=== PATIENT | male | born 1960 | race Caucasian/White ===

== ENCOUNTER 2019-06-25 20:06 | Emergency (ER) | payer SELFPAY ==
[~2019-06-25] VITALS: Ht 190.5 cm; Wt 111.4 kg
[2019-06-25 20:44] VITALS: BP 166/86; PULSE 89; TEMP 98.6
[2019-06-25] MEDS ORDERED: HCTZ12.5TAB PO (21:53)
[2019-06-25] MEDS ORDERED: DOXYCYCLINE 10100 MG PO (22:54)
[2019-06-25] MEDS ORDERED: CEPHALEXIN500 M1 PO (22:54)
[2019-06-25] MEDS ORDERED: NORCO 325 MG-51 TAB PO (23:01)
== END 2019-06-25 23:24 | disposition home or self-care (01) ==
LOC: COL.ER 20:06
DX: S61.256A Open bite of right little finger without damage to nail, initial encounter (principal); L03.011 Cellulitis of right finger; Z23 Encounter for immunization; W54.0XXA Bitten by dog, initial encounter; Y92.410 Unspecified street and highway as the place of occurrence of the external cause

== ENCOUNTER 2020-03-18 15:21 | Emergency (ER) | payer SELFPAY ==
[~2020-03-18] VITALS: Ht 190.5 cm; Wt 109.1 kg
[~2020-03-18 15:21] MED LIST: CEPHALEXIN500 M1 PO; DOXYCYCLINE 10100 MG PO; HCTZ12.5TAB PO; NORCO 325 MG-51 TAB PO
[2020-03-18 15:29] VITALS: TEMP 97.6
[2020-03-18 16:08] LABS: BASO % 0.3 % (0.0-2.0); EOS # 0.1 (0.0-0.7); GRAN # 6.9 (1.4-6.5); GRAN % 74.1 % (42.2-75.2); HEMATOCRIT 43.7 % (42.0-52.0); LYMPH # 1.6 (1.2-3.4); LYMPH % 16.9 % (20.0-51.0); MEAN CELL VOLUME 91 fl (80.0-100.0); MEAN CORPUSCULAR HEMOGLOBIN 29 pg (27.0-31.0); MEAN CORPUSCULAR HGB CONC 32 g/dl (33.0-37.0); MONO # 0.7 (0.1-0.6); MONO % 7.4 % (1.7-9.3); PLATELET COUNT 202 K/mm3 (130-400); RED BLOOD COUNT 4.81 M/mm3 (4.20-5.60); REDCELL DISTRIBUTION WIDTH-CV 13.2 % (11.5-14.5)
[2020-03-18 16:25] LABS: BILIRUBIN,TOTAL 0.4 mg/dL (0.0-1.0); CALCIUM 8.9 mg/dL (8.4-10.2); CREATININE, serum 0.84 (0.66-1.25); POTASSIUM 4.2 mmol/L (3.4-5.0); TOTAL PROTEIN 7.2 gm/dL (6.4-8.2)
[2020-03-18] MEDS ORDERED: BACTRIM DS 8001 TAB PO (16:44)
[2020-03-18] MEDS ORDERED: NORCO 325 MG-51 TAB PO (16:54)
[2020-03-18 16:57] VITALS: BP 175/79; PULSE 94
== END 2020-03-18 16:59 | disposition home or self-care (01) ==
LOC: COL.ER 15:21
PROVIDERS: Nurse Practitioner Primary Care
DX: L03.032 Cellulitis of left toe (principal); F17.210 Nicotine dependence, cigarettes, uncomplicated
CPT/HCPCS: J0696

== ENCOUNTER → 2020-03-20 | Outpatient (CLI) | payer SELFPAY ==
[~2020-03-20] MED LIST changes: +BACTRIM DS 8001 TAB PO
== END ==
LOC: ZCOL.LAB 13:49
DX: L97.529 Non-pressure chronic ulcer of other part of left foot with unspecified severity (principal)

== ENCOUNTER 2022-01-08 07:36 | Inpatient (IN) | payer SELFPAY ==
[2022-01-08] VITALS (14 sets, daily range): BP systolic 115–175; BP diastolic 70–97; PULSE 88–105; TEMP 97.3–98.1
[~2022-01-08] VITALS: Ht 190.5 cm; Wt 112.9 kg
[2022-01-08 08:16] LABS: BASO % 0.3 % (0.0-2.0); EOS # 0.1 K/mm3 (0.0-0.7); EOS % 1.5 % (0.0-4.0); GRAN # 6.8 K/mm3 (1.4-6.5); GRAN % 74.7 % (42.2-75.2); HEMATOCRIT 39.5 % (42.0-52.0); HEMOGLOBIN 12.2 g/dl (13.5-18.0); LYMPH # 1.3 K/mm3 (1.2-3.4); LYMPH % 14.4 % (20.0-51.0); MEAN CELL VOLUME 90 fl (80.0-100.0); MEAN CORPUSCULAR HEMOGLOBIN 28 pg (27-31); MEAN CORPUSCULAR HGB CONC 31 g/dl (33.0-37.0); MEAN PLATELET VOLUME 9.2 fl (7.4-10.4); MONO # 0.8 K/mm3 (0.1-0.6); MONO % 8.8 % (1.7-9.3); PLATELET COUNT 248 K/mm3 (130-400); RED BLOOD COUNT 4.39 M/mm3 (4.20-5.60); REDCELL DISTRIBUTION WIDTH-CV 15.9 % (11.5-14.5)
[2022-01-08 08:42] LABS: ALBUMIN 3.4 gm/dL (3.4-4.8); BILIRUBIN,TOTAL 0.7 mg/dL (0.2-1.2); CALCIUM 8.4 mg/dL (8.4-10.2); CREATININE, serum 0.87 mg/dL (0.72-1.25); POTASSIUM 3.7 mmol/L (3.5-4.5); TOTAL PROTEIN 6.6 gm/dL (6.2-8.1)
[2022-01-08 08:53] LABS: TROPONIN-I 0.098 ng/mL (0.00-0.033)
[2022-01-08 09:06] LABS: COLLECTION METHOD CLEAN CATCH
[2022-01-08 09:15] LABS: MUCOUS Present (NOT PRESENT); PH 5 (5-8); SQUAMOUS EPITHELIAL 0-2 /hpf (0-10); URINE APPEARANCE Hazy (CLEAR/HAZY); URINE BACTERIA None Seen /hpf (NONE SEEN); URINE BILIRUBIN Negative (NEGATIVE); URINE BLOOD Negative (NEGATIVE); URINE COLOR Amber (YELLOW); URINE GLUCOSE Negative (NEGATIVE); URINE KETONE Trace (NEGATIVE); URINE LEUKOCYTE ESTERASE Negative (NEGATIVE); URINE NITRATE Negative (NEGATIVE); URINE PROTEIN(semi-quant) 2+ (NEGATIVE)
--- NOTE | 2022-01-08 13:25 | NUR ---
SEE MERGE FOR ALL MEDICATION AND INTRA POST PROCEDURE ASSESSMENTS.
[2022-01-08] MEDS ORDERED: STRATTERA 40MG40 MG PO (17:18)
[2022-01-08] MEDS ORDERED: CYMBALTA 30MG30 MG PO (17:19)
--- NOTE | 2022-01-08 19:42 | NUR ---
Tx given via mask, pt very sleepy and falls asleep during tx. Hospital unit offered to pt as ordered. Pt states that he has tried CPAP/BIPAP at home and it is not something he wants to try again at this time. 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
--- NOTE | 2022-01-08 22:24 | NUR ---
Patient assessed around 1950. Alert and oriented, and able to make needs known. Denies pain and discomfort. Peripheral IV to left forearm with IV fluids running per orders. Deneis SOB and dyspnea. On oxygen at 2 L/min via NC. LS coarse crackles in upper lobes, diminished in lower. HRR. Telemetry in place. Right radial heart cath site with bandaid on. Site without hematoma, redness, warmth, swelling, and pain. Voices no questions, need, or concerns at this time. In bed with call light within reach.
[2022-01-09 04:41] VITALS: BP 129/65; PULSE 85; TEMP 97.3
--- NOTE | 2022-01-09 05:32 | NUR ---
Patient has been resting in bed with call light within reach. Denies pain and discomfort. Voices no questions, needs, or concerns at this time.
[2022-01-09 06:50] LABS: CALCIUM 8.3 mg/dL (8.4-10.2); CREATININE, serum 0.85 mg/dL (0.72-1.25); MAGNESIUM 1.9 mg/dL (1.6-2.6); POTASSIUM 3.9 mmol/L (3.5-4.5)
[2022-01-09 07:03] VITALS: BP 125/72; PULSE 82; TEMP 98.3
[2022-01-09 07:13] LABS: TSH w REFLEX 1.012 uIU/mL (0.350-4.940)
--- NOTE | 2022-01-09 09:50 | NUR ---
Patient walking around his room upon entering. All morning meds were given w/o difficulty. Patietn has not expressed any concerns/complaints. A&Ox4, independent in his room.
[2022-01-09 11:32] VITALS: BP 109/64; PULSE 75; TEMP 98
--- NOTE | 2022-01-09 12:42 | NUR ---
SW met with pt to complete intake. PT was in/out of sleep and not answering questions well. The pt reports he lives alone in a in [place] and has a daughter, Erika [phone]. He reports he uses a CPAP and a cane. He is indpendent on all ADLs. The pt reports no PCP but gets his medications from [facility]. SW gave patient a financial assistance application and list of PCP doctors. DC: Home? following for further recommendations
--- NOTE | 2022-01-09 13:40 | NUR ---
Patient doing well, report given to
--- NOTE | 2022-01-09 15:02 | NUR ---
DR. PHIPPS NOTIFIED OF DRAINAGE FROM L GREAT TOE, AND HOW PT WAS REFUSING CPAP LAST NIGHT. NO NEW ORDERS
--- NOTE | 2022-01-09 15:14 | NUR ---
MARIBELL made APS report #[id number]
[2022-01-09 15:28] VITALS: BP 115/86; PULSE 80; TEMP 98
--- NOTE | 2022-01-09 17:13 | NUR ---
PT SLEEPING IN THE ROOM, COREG GIVEN PER ORDER, PT AOX4, UNEVENTFUL SHIFT
[2022-01-09 19:58] VITALS: BP 116/56; PULSE 76; TEMP 98.6
[2022-01-09 23:42] VITALS: BP 96/52; PULSE 76; TEMP 98.2
[2022-01-10 03:53] VITALS: BP 101/68; PULSE 88; TEMP 98
--- NOTE | 2022-01-10 05:08 | NUR ---
PATIENT REFUSED CPAP TONIGHT. NO NEW ISSUES NOTED OR REPORTED BY PATIENT. CALL LIGHT WITHIN REACH.
[2022-01-10 06:56] LABS: CALCIUM 7.7 mg/dL (8.4-10.2); CREATININE, serum 0.85 mg/dL (0.72-1.25); MAGNESIUM 1.9 mg/dL (1.6-2.6); POTASSIUM 3.6 mmol/L (3.5-4.5)
[2022-01-10 07:43] VITALS: BP 102/57; PULSE 110; TEMP 97.6
--- NOTE | 2022-01-10 09:49 | NUR ---
PT SITTING UP IN RECLINER. MORNING MEDICATIONS GIVEN. SHIFT ASSESSMENT COMPLETED. REPORTING MILD PAIN TO R HIP. ALSO CONCERNED ABOUT TOE FUNGUS THAT HAS BECOME PAINFUL, STATES HE STARTED TAKING MEDICATION FOR IT A LONG TIME AGO BUT HASN'T SEEN THE DOCTOR OR TAKEN THE MEDICATION FOR THE PAST 3 YEARS. DENIED ANY OTHER NEEDS AT THIS TIME. WILL CONTINUE TO MONITOR.
[2022-01-10 11:26] VITALS: BP 114/74; PULSE 72; TEMP 97.9
[2022-01-10 16:16] VITALS: BP 141/73; PULSE 73; TEMP 98.1
[2022-01-10 20:46] VITALS: BP 105/61; PULSE 72; TEMP 98
[2022-01-10 23:54] VITALS: BP 101/54; PULSE 76; TEMP 97.9
[2022-01-11 04:21] VITALS: BP 136/78; PULSE 83; TEMP 98.1
--- NOTE | 2022-01-11 06:11 | NUR ---
PATIENT WAS ONLY ABLE TO TOLERATE THE BIPAP FOR 45 MINUTES THIS SHIFT. PATIENT STATED HE JUST CAN'T TAKE IT. NO OTHER ISSUES NOTED OR REPORTED BY PATIENT. PATIENT TOOK A LONG SHOWER LAST NIGHT AND SAID IT PRIYANKA GREAT.
[2022-01-11 06:28] LABS: BASO # 0.1 K/mm3 (0.0-0.2); BASO % 0.5 % (0.0-2.0); EOS % 0.3 % (0.0-4.0); GRAN # 8.8 K/mm3 (1.4-6.5); GRAN % 68.3 % (42.2-75.2); HEMATOCRIT 41.9 % (42.0-52.0); HEMOGLOBIN 13.2 g/dl (13.5-18.0); LYMPH # 2.9 K/mm3 (1.2-3.4); LYMPH % 22.5 % (20.0-51.0); MEAN CELL VOLUME 89 fl (80.0-100.0); MEAN CORPUSCULAR HEMOGLOBIN 28 pg (27-31); MEAN CORPUSCULAR HGB CONC 32 g/dl (33.0-37.0); MEAN PLATELET VOLUME 9.1 fl (7.4-10.4); MONO % 7.9 % (1.7-9.3); PLATELET COUNT 266 K/mm3 (130-400); RED BLOOD COUNT 4.69 M/mm3 (4.20-5.60); REDCELL DISTRIBUTION WIDTH-CV 15.7 % (11.5-14.5)
[2022-01-11 06:42] LABS: CALCIUM 7.8 mg/dL (8.4-10.2); CREATININE, serum 0.87 mg/dL (0.72-1.25); POTASSIUM 3.5 mmol/L (3.5-4.5)
[2022-01-11 08:06] VITALS: BP 118/61; PULSE 79; TEMP 98.7
--- NOTE | 2022-01-11 10:05 | NUR ---
PT RESTING IN BED, STATES HE DID NOT GET ANY SLEEP LAST NIGHT. MORNING MEDICATIONS GIVEN. SHIFT ASSESSMENT COMPLETED. PT DENIES ANY PAIN. STATES HE DOES GET SOB INTERMITTENLY, MOSTLY WHEN HE STARTS TO FEEL ANXIOUS. CONTINUING TO MONITOR.
[2022-01-11 11:18] VITALS: BP 94/56; PULSE 70; TEMP 98.3
[2022-01-11] MEDS ORDERED: PRINIVIL10 MG PO (11:46)
[2022-01-11] MEDS ORDERED: COREG 25MG25 MG/TAB PO (11:46)
[2022-01-11] MEDS ORDERED: ALDACTONE 25MG25 M1 PO (11:46)
[2022-01-11] MEDS ORDERED: LASIX 40MG TABL40 MG PO (11:47)
--- NOTE | 2022-01-11 13:15 | NUR ---
PT is recommending outpatient therapy vs cardiac rehab. The clinical team is recommending cardiac rehab. MARIBELL contacted Richie in Cardiac Rehab. Richie requested the patient's facesheet, an order for cardiac rehab, and the patient's echocardiogram. MARIBELL faxed that information to Richie. Ashlyn reports that she will get in contact with the patient to schedule an appointment time.
== END 2022-01-11 13:16 | disposition home or self-care (01) | DRG 286 ==
LOC: COL.ER 07:36 → MEDICAL 09:27
PROVIDERS: Physician Assistant; Student in an Organized Health Care Education/Training Program; ADMIT Internal Medicine
PROC: 4A023N7 Measurement of Cardiac Sampling and Pressure, Left Heart, Percutaneous Approach (ICD-10-PCS; principal; 2022-01-08)
PROC: B2111ZZ Fluoroscopy of Multiple Coronary Arteries using Low Osmolar Contrast (ICD-10-PCS; 2022-01-08)
DX: I11.0 Hypertensive heart disease with heart failure (principal); I50.21 Acute systolic (congestive) heart failure; J44.1 Chronic obstructive pulmonary disease with (acute) exacerbation; F41.9 Anxiety disorder, unspecified; F32.A Depression, unspecified; F17.210 Nicotine dependence, cigarettes, uncomplicated; F90.9 Attention-deficit hyperactivity disorder, unspecified type; I42.0 Dilated cardiomyopathy; G47.33 Obstructive sleep apnea (adult) (pediatric); Z20.822 Contact with and (suspected) exposure to COVID-19
CPT/HCPCS: 99223-AI; 99233-AI; 99239; C1769; J1644; J1650; J1940; J2250; J3010; J7512; Q9967

== ENCOUNTER 2022-04-22 14:33 | Emergency (ER) | payer SELFPAY ==
[~2022-04-22] VITALS: Ht 190.5 cm; Wt 113.6 kg
[~2022-04-22 14:33] MED LIST changes: +ALDACTONE 25MG25 M1 PO; +COREG 25MG25 MG/TAB PO; +CYMBALTA 30MG30 MG PO; +LASIX 40MG TABL40 MG PO; +PRINIVIL10 MG PO; +STRATTERA 40MG40 MG PO
[2022-04-22 14:45] VITALS: TEMP 98.3
[2022-04-22 15:32] LABS: BASO % 0.5 % (0.0-2.0); EOS # 0.3 K/mm3 (0.0-0.7); EOS % 3.4 % (0.0-4.0); GRAN % 62.1 % (42.2-75.2); HEMATOCRIT 40.6 % (42.0-52.0); LYMPH # 1.9 K/mm3 (1.2-3.4); LYMPH % 23.9 % (20.0-51.0); MEAN CELL VOLUME 91 fl (80.0-100.0); MEAN CORPUSCULAR HEMOGLOBIN 29 pg (27-31); MEAN CORPUSCULAR HGB CONC 32 g/dl (33.0-37.0); MONO # 0.8 K/mm3 (0.1-0.6); MONO % 9.5 % (1.7-9.3); PLATELET COUNT 185 K/mm3 (130-400); RED BLOOD COUNT 4.45 M/mm3 (4.20-5.60); REDCELL DISTRIBUTION WIDTH-CV 16.9 % (11.5-14.5)
[2022-04-22 15:50] LABS: ALBUMIN 3.5 gm/dL (3.4-4.8); BILIRUBIN,TOTAL 0.4 mg/dL (0.2-1.2); CREATININE, serum 1.21 mg/dL (0.72-1.25); POTASSIUM 3.7 mmol/L (3.5-4.5); TOTAL PROTEIN 7.1 gm/dL (6.2-8.1)
[2022-04-22 17:52] VITALS: BP 102/59; PULSE 75
--- NOTE | 2022-04-23 07:44 | NUR ---
On 04/22/2022, director of social services met with Annmarie from [facility]. Annmarie states they drove to [place] and found patient in his storage shed, where he has been staying as he cannot afford lot rent where his trailer is parked. Annmarie states she left message for patient's daughter, however, hasn't received a call. Annmarie states that they thought patient's feet needed medical attention and brought him to the emergency room. Worker communicated this information to emergency room nursing.
--- NOTE | 2022-04-23 11:01 | NUR ---
kitchen worker filed an APS report #[id number] for self neglect.
== END 2022-04-22 17:53 | disposition home or self-care (01) ==
LOC: COL.ER 14:33
PROVIDERS: Nurse Practitioner
DX: M79.671 Pain in right foot (principal); M79.672 Pain in left foot

== ENCOUNTER 2024-01-01 16:40 | Emergency (ER) | payer OTHER ==
[~2024-01-01] VITALS: Ht 190.5 cm; Wt 113.6 kg
[~2024-01-01 16:40] MED LIST changes: +ASPIRIN 81M81 MG/TA2 PO; +LIPITOR 40MG TA40 MG PO; +OMNICEF 300MG300 MG PO
[2024-01-01 16:48] VITALS: TEMP 98.1
[2024-01-01 17:45] LABS: BASO % 0.3 % (0.0-2.0); EOS # 0.1 K/mm3 (0.0-0.7); EOS % 1.9 % (0.0-4.0); GRAN # 4.2 K/mm3 (1.4-6.5); GRAN % 66.5 % (42.2-75.2); HEMATOCRIT 38.5 % (42.0-52.0); HEMOGLOBIN 12.3 g/dl (13.5-18.0); LYMPH # 1.5 K/mm3 (1.2-3.4); LYMPH % 23.4 % (20.0-51.0); MEAN CELL VOLUME 90 fl (80.0-100.0); MEAN CORPUSCULAR HEMOGLOBIN 29 pg (27-31); MEAN CORPUSCULAR HGB CONC 32 g/dl (33.0-37.0); MONO # 0.5 K/mm3 (0.1-0.6); MONO % 7.7 % (1.7-9.3); PLATELET COUNT 199 K/mm3 (130-400); RED BLOOD COUNT 4.26 M/mm3 (4.20-5.60); REDCELL DISTRIBUTION WIDTH-CV 14.3 % (11.5-14.5)
[2024-01-01] MEDS ORDERED: Ketorolac 15 MG/ML VIAL IV ONE (18:15)
[2024-01-01 18:29] LABS: ALBUMIN 3.1 gm/dL (3.4-4.8); BILIRUBIN,TOTAL 0.3 mg/dL (0.2-1.2); C-REACTIVE PROTEIN 1.22 mg/dL (0.00-0.50); CALCIUM 9.1 mg/dL (8.4-10.2); CREATININE, serum 0.87 mg/dL (0.72-1.25); POTASSIUM 4.1 mmol/L (3.5-4.5); TOTAL PROTEIN 6.5 gm/dL (6.2-8.1)
[2024-01-01] MEDS ORDERED: Doxycycline Monohydrate 100 MG CAP PO ONE (20:00)
[2024-01-01 21:22] LABS: COLLECTION METHOD CLEAN CATCH
[2024-01-01 21:33] LABS: URINE APPEARANCE CLEAR (CLEAR/HAZY); URINE BLOOD 1+ (NEGATIVE); URINE COLOR YELLOW (YELLOW); URINE GLUCOSE NEGATIVE (NEGATIVE); URINE KETONE NEGATIVE (NEGATIVE); URINE NITRATE POSITIVE (NEGATIVE); URINE PROTEIN(semi-quant) NEGATIVE (NEGATIVE)
[2024-01-01] MEDS ORDERED: BACTRIM DS 8001 TAB PO (22:13)
[2024-01-01] MEDS ORDERED: CEPHALEXIN500 M1 PO (22:13)
[2024-01-01 22:45] VITALS: BP 130/80; PULSE 80
== END 2024-01-01 22:45 | disposition home or self-care (01) ==
LOC: COL.ER 16:40
PROVIDERS: Nurse Practitioner
DX: S91.102A Unspecified open wound of left great toe without damage to nail, initial encounter (principal); M86.9 Osteomyelitis, unspecified; N39.0 Urinary tract infection, site not specified; F17.210 Nicotine dependence, cigarettes, uncomplicated; Z89.412 Acquired absence of left great toe; Z59.00 Homelessness unspecified; Z88.0 Allergy status to penicillin; X58.XXXA Exposure to other specified factors, initial encounter
CPT/HCPCS: J1885

== ENCOUNTER 2024-02-17 11:43 | Emergency (ER) | payer OTHER ==
[~2024-02-17] VITALS: Ht 190.5 cm; Wt 113.6 kg
[2024-02-17 11:45] VITALS: TEMP 98.3
[2024-02-17 12:18] LABS: BASO % 0.3 % (0.0-2.0); EOS # 0.1 K/mm3 (0.0-0.7); EOS % 1.7 % (0.0-4.0); GRAN # 4.6 K/mm3 (1.4-6.5); GRAN % 64.8 % (42.2-75.2); HEMATOCRIT 39.8 % (42.0-52.0); HEMOGLOBIN 12.7 g/dl (13.5-18.0); LYMPH # 1.7 K/mm3 (1.2-3.4); LYMPH % 24.6 % (20.0-51.0); MEAN CELL VOLUME 91 fl (80.0-100.0); MEAN CORPUSCULAR HEMOGLOBIN 29 pg (27-31); MEAN CORPUSCULAR HGB CONC 32 g/dl (33.0-37.0); MEAN PLATELET VOLUME 9.3 fl (7.4-10.4); MONO # 0.6 K/mm3 (0.1-0.6); MONO % 8.3 % (1.7-9.3); PLATELET COUNT 201 K/mm3 (130-400); RED BLOOD COUNT 4.37 M/mm3 (4.20-5.60); REDCELL DISTRIBUTION WIDTH-CV 14.7 % (11.5-14.5)
[2024-02-17 12:51] LABS: ALBUMIN 3.4 g/dL (3.4-4.8); BILIRUBIN,TOTAL 0.4 mg/dL (0.2-1.2); C-REACTIVE PROTEIN 0.36 mg/dL (0.00-0.50); CALCIUM 8.7 mg/dL (8.4-10.2); CREATININE, serum 0.84 mg/dL (0.72-1.25); POTASSIUM 4.1 mEq/L (3.5-4.5); TOTAL PROTEIN 6.5 g/dl (6.2-8.1)
[2024-02-17] MEDS ORDERED: Acetaminophen 500 MG TAB PO ONE (14:31)
[2024-02-17 15:00] VITALS: BP 138/88; PULSE 97
--- NOTE | 2024-02-17 15:04 | NUR ---
skip pit worker was consulted on this patient and he wanted information on assisted living. SW met with patient's nurse whom reported patient had been seen previously at the ER and his wounds are worse now. Patient has not been caring for himself at home and has had recent falls. Nurse reports patient is ready to return home was just waiting on the social worker psychiatric to meet and provide the information requested. MARIBELL and MARIBELL Zarate met with patient to discuss concerns. Patient reports he lives in [place] with his sister, Katy, and brother in law. Patient reports he does not have a PCP. SW notes patient's lower extremities appeared red in color and was moaning in pain during the assessment. SW asked about wound care and if he has been following up with them. Patient reports he was supposed to go once a week but he has not gone to his appointments in a couple weeks. SW asked why this was and he stated his sister left him at home alone, so he did not go. SW asked if patient's sister transports him to and from appointments. Patient reports no he drives himself. SW asked why his sister leaving on a trip resulted in him not attending his appointments if he is driving. Patient stated "well, I just did not want to go." Patient reports he has a walker and crutches at home but reports he does not use his walker and only uses his one crutch. SW discussed ADLS and patient reports he is independent with his own ADLS. Patient reports he has fallen at home recently and that he needs assistance up most of the time for this falls. SW asked about the circumstances around these falls and he stated he was dizzy and would fall. SW discussed assisted living and home health options. Patient reports he does not want to pay for assisted living. SW mentioned home health but would need to be established with a PCP first. SW presented Medicare.gov list of home health, Medicare.gov list of nursing homes, pamphlets on assisted living in the 30 mile radius of [place], pamphlets on home health in a 30 mile radius of [place] and the list of private pay services provided by [facility] on [facility]ging. Patient intitially reports he would not be open to someone coming into the home but then expressed he would be open to it. SW discussed he if he would be able to private pay for these services if his insurance does not cover when established with a PCP. Patient stated he may be able to. SW discussed cost of assisted living, patient again stated he did not want to pay for assisted living. SW discussed housing services in the [facility] and highlighted the information on the private pay list of services from [facility]. SW expressed she would contact the [facility] to determine if they could assist him with any additional services. Patient was agreeable to this. SW discussed discharge plan again, patient stated he did not want to pay to go anywhere, so he wanted to go home. SW left the pamphlets, Medicare.gov lists and private pay services with patient. SW notified patient's nurse of this information along with that she would be making an APS report due to self-neglect concerns. MARIBELL left a voicemail with Ava at [facility] regarding assisting patient with any home or community services. SW Student, Alesha, contacted the wound care clinic to determine when patient's last appointment was. Patient was seen on 01/03 as a new patient, had a follow up on 01/08, last seen at their clinic on 01/15. They stated patient was supposed to have an arteral study scheduled for 02/01 however he missed this appointment and rescheduled it then missed the rescheduled appointment as well. Wound care clinic expressed they would contact patient on Tuesday to schedule this appointment again. MARIBELL was notified by ER doctor of concerns of patient caring for himself. MARIBELL explained she would discuss with him again the concerns she has and see if he would be open to LTC and applying for Medicaid. SW expressed she is making an APS report for self-neglect. MARIBELL contacted Nathalie Acevedo, risk tech, and provided information on this patient. Nathalie expressed we could see if patient wanted to go to LTC, we would complete a medicaid application and admit him under observation and send referrals medicaid pending or if patient refuses to go to LTC and is alert and oriented he would return home with APS being contacted and attempting to establish PCP and home services. MARIBELL notes patient is alert and oriented x3 per ER documentation. MARIBELL met with Dr. Danielle and informed him of the above information and will give him an update after speaking with the patient again. MARIBELL met with patient again and expressed concerns of patient caring for himself at home. MARIBELL discussed LTC. Patient asked what this is and social worker psychiatric explained it would be a nursing facility. SW explained the process of patient would be admitted to the hospital, they would assist with filling out a medicaid application and would send referrals to these facilities for LTC medicaid pending. SW explained there is a likelihood patient would not be able to stay in the [facility] as nursing facilities here have not been able to accept Medicaid pending recently. Patient expressed he did not want to go to a nursing facility. Patient reports he "is not ready to go to a nursing facility." SW explained the cost to private pay for assisted living again and for a nursing facility if he decided to go to one without applying for Medicaid. For assisted living, it can be anywhere from $4,000-8,000 a month depending on facility and level of care, for LTC private pay would be around $8,000 - $12,000 again depending on the facility. Patient expressed he would have no way of private paying. SW recommended applying for Medicaid to determine if he qualifies as his [employer] insurance would not pay for SNF, LTC or AL services and only a couple home health agencies accept [employer]. Patient understood. SW presented the options again and patient expressed he wants to return home. SW again expressed the medical team's concerns of patient being able to care for himself, patient understood and is agreeable to go to his follow up appointments. Patient is agreeable to go to [facility] for PCP. SW will attempt to assist with getting him established there. SW explained patient's wound care clinic will be calling him on Tuesday to schedule the follow up. Patient understood. SW reminded patient of the pamphlets, Medicare.gov list of options for HH and nursing facilities along with the AL information. Patient understood and would take the resources home. Patient is open to Home health but would need to wait to be established with a PCP to follow his care. MARIBELL provided the update to patient's nurse, patient's doctor and Nathalie Acevedo, risk tech. MARIBELL made APS report due to concerns of self-neglect. Intake ID: [id number] SW was notified patient needed transportation home as his ride is unable to pick him up. MARIBELL scheduled an UBER to transport patient home and provided information to patient's nurse.
== END 2024-02-17 15:03 | disposition home or self-care (01) ==
LOC: COL.ER 11:43
PROVIDERS: Family Medicine
DX: R29.6 Repeated falls (principal); I87.2 Venous insufficiency (chronic) (peripheral); L97.519 Non-pressure chronic ulcer of other part of right foot with unspecified severity; Z89.412 Acquired absence of left great toe

== ENCOUNTER → 2024-06-18 | Outpatient (CLI) | payer MEDICARE | LOC: COL.RAD 16:00 | DX: M51.36 Other intervertebral disc degeneration, lumbar region (principal); M48.061 Spinal stenosis, lumbar region without neurogenic claudication; M43.16 Spondylolisthesis, lumbar region; M47.816 Spondylosis without myelopathy or radiculopathy, lumbar region ==

== ENCOUNTER 2024-08-26 17:30 | Inpatient (IN) | payer MEDICARE ==
[~2024-08-26] VITALS: Ht 190.5 cm; Wt 109.9 kg
[~2024-08-26 17:30] MED LIST changes: +PRINIVIL40 MG PO
[2024-08-26] MEDS ORDERED: LR 1,000 ML IV ONE (18:00)
[2024-08-26 18:07] LABS: BASO % 0.3 % (0.0-2.0); EOS # 0.1 K/mm3 (0.0-0.7); GRAN # 10.2 K/mm3 (1.4-6.5); GRAN % 80.9 % (42.2-75.2); HEMOGLOBIN 11.7 g/dl (13.5-18.0); LYMPH # 1.2 K/mm3 (1.2-3.4); LYMPH % 9.4 % (20.0-51.0); MEAN CELL VOLUME 89 fl (80.0-100.0); MEAN CORPUSCULAR HEMOGLOBIN 29 pg (27-31); MEAN CORPUSCULAR HGB CONC 33 g/dl (33.0-37.0); MEAN PLATELET VOLUME 8.2 fl (7.4-10.4); MONO % 7.8 % (1.7-9.3); PLATELET COUNT 329 K/mm3 (130-400); RED BLOOD COUNT 4.02 M/mm3 (4.20-5.60); REDCELL DISTRIBUTION WIDTH-CV 13.9 % (11.5-14.5)
[2024-08-26 18:09] LABS: HEMATOCRIT 35.7 % (42.0-52.0)
[2024-08-26 18:28] LABS: ALBUMIN 2.9 g/dL (3.4-4.8); BILIRUBIN,TOTAL 0.3 mg/dL (0.2-1.2); C-REACTIVE PROTEIN 7.71 mg/dL (0.00-0.50); CALCIUM 9.3 mg/dL (8.4-10.2); CREATININE, serum 1.58 mg/dL (0.72-1.25); POTASSIUM 4.1 mEq/L (3.5-4.5); TOTAL PROTEIN 7.4 g/dl (6.2-8.1)
[2024-08-26] MEDS ORDERED: NS 1,000 ML IV ONE (18:30)
[2024-08-26] MEDS ORDERED: Morphine 4 MG/ML VIAL IV ONE (19:00)
[2024-08-26] MEDS ORDERED: LR 1,000 ML IV SCH (19:30)
[2024-08-26] MEDS ORDERED: Vancomycin 1.5 GM,Special Dose/Pharmacy Prepared 1.5 GM in NS 250 ML IV SCH (19:30)
[2024-08-26] MEDS ORDERED: Ondansetron 4 MG/2 ML VIAL IV PRN (19:30)
[2024-08-26] MEDS ORDERED: Acetaminophen 500 MG TAB PO PRN (19:30)
[2024-08-26] MEDS ORDERED: Vancomycin 1.25 GM,Special Dose/Pharmacy Prepared 1.25 GM in NS 250 ML IV SCH (20:00)
[2024-08-26 21:00] VITALS: BP_SYST 90
[2024-08-26] MEDS ORDERED: Atorvastatin 40 MG TAB PO SCH (21:00)
[2024-08-26 21:56] VITALS: BP 90/55; PULSE 80; TEMP 98.1
--- NOTE | 2024-08-26 23:36 | NUR ---
PATIENT BROUGHT TO FLOOR AT APPROXIMATELY 2230. INTAKE PERFORMED. IV TO RIGHT AC WITH FLUIDS INFUSING AT 15OML/HOUR. IV TO LEFT FA INT AND FLUSHES WELL. SKIN ASSESSMENT PERFORMED. PATIENT REPORTS MILD PAIN, REQUESTS PRN PAIN MEDICATION. PATIENT'S VS WERE WNL WITH THE EXCEPTION OF BP, PATIENT EDUCATED ON IMPORTANCE OF MAINTAINING A HEALTHY BP. POLICIES AND PROCEDURES DISCUSSED. NO FURTHER NEEDS. CALL LIGHT IN REACH. PATIENT REMINDED TO CALL NURSE/PCT USING CALL LIGHT IF BATHROOM NEEDS SHOULD ARISE.
[2024-08-26 23:47] VITALS: BP_SYST 90
[2024-08-26 23:57] VITALS: BP 93/58; PULSE 75; TEMP 97.9
[2024-08-27] VITALS (15 sets, daily range): BP systolic 93–127; BP diastolic 50–67; PULSE 67–82; TEMP 97.3–98.3
--- NOTE | 2024-08-27 02:49 | NUR ---
ATTEMPTED TO PERFORM MED RX. PATIENT UNAWARE OF CERTAIN MEDICATIONS AND LAST DOSE. PATIENT SOMEWHAT OF A POOR HISTORIAN.
--- NOTE | 2024-08-27 05:36 | NUR ---
63 yo male admitted for further care and management of possible sepsis likely from a bone/joint source (possible osteomyelitis of the R great toe). ht 190.5 cm wt 109.9 kg SCr 1.58 with estimated CrCl ~57 ml/min half life 20.3 hours Plan: Patient received an initial loading dose of vancomycin 2000 mg x1 in the ED (18.2 mg/kg); will follow with a maintenance regimen of vancomycin 1500 mg q18h to target a goal trough of 15-20 mcg/ml. Will follow patient's renal function, micro data, and vancomycin levels as indicated to assess for any necessary changes to the regimen. Thank you for this dosing consult.
[2024-08-27] MEDS ORDERED: Vancomycin 1.25 GM,Special Dose/Pharmacy Prepared 1.25 GM in NS 250 ML IV SCH (06:30)
[2024-08-27 06:32] LABS: BASO % 0.3 % (0.0-2.0); EOS # 0.1 K/mm3 (0.0-0.7); EOS % 1.4 % (0.0-4.0); GRAN # 6.1 K/mm3 (1.4-6.5); GRAN % 67.4 % (42.2-75.2); HEMOGLOBIN 10.3 g/dl (13.5-18.0); LYMPH # 1.9 K/mm3 (1.2-3.4); LYMPH % 20.8 % (20.0-51.0); MEAN CELL VOLUME 88 fl (80.0-100.0); MEAN CORPUSCULAR HEMOGLOBIN 29 pg (27-31); MEAN CORPUSCULAR HGB CONC 33 g/dl (33.0-37.0); MEAN PLATELET VOLUME 8.5 fl (7.4-10.4); MONO # 0.9 K/mm3 (0.1-0.6); MONO % 9.4 % (1.7-9.3); PLATELET COUNT 260 K/mm3 (130-400); RED BLOOD COUNT 3.59 M/mm3 (4.20-5.60)
[2024-08-27 06:48] LABS: HEMATOCRIT 31.4 % (42.0-52.0)
[2024-08-27 06:58] LABS: CALCIUM 8.3 mg/dL (8.4-10.2); CREATININE, serum 1.02 mg/dL (0.72-1.25); POTASSIUM 3.9 mEq/L (3.5-4.5)
[2024-08-27] MEDS ORDERED: LR 1,000 ML IV SCH (08:00)
--- NOTE | 2024-08-27 11:30 | NUR ---
SHIFT ASSESSMENT COMPLETED. BP'S RUNNING LOW 93/50, ALL OTHER VS WITHIN NORMAL RANGE. ALL MORNING MEDS GIVEN ORDERED W/ SIP OF WATER. PATIENT RESTING IN BED SLEEPING OFF AND ON. PATIENT STATES PAIN 3-4/10 TYLENOL GIVEN ORDERED. PATIENT HAS NO REQUEST AT THIS TIME. CALL LIGHT IN REACH
[2024-08-27] MEDS ORDERED: NS 10 ML IV ONE (11:36)
[2024-08-27] MEDS ORDERED: Lidocaine PF 2% (20 MG/ML) 5 ML VIAL ONE ×3 (11:36→13:38)
[2024-08-27] MEDS ORDERED: Ketorolac 30 MG/ML VIAL ONE (11:36)
[2024-08-27] MEDS ORDERED: Ondansetron 4 MG/2 ML VIAL ONE (11:36)
[2024-08-27] MEDS ORDERED: dexAMETHasone 10 MG/ML VIAL ONE (11:36)
[2024-08-27] MEDS ORDERED: cefTRIAXone 2 G in Water For Injection,Sterile 20 ML IV SCH (11:45)
[2024-08-27] MEDS ORDERED: Ondansetron 4 MG/2 ML VIAL IV PRN ×2 (12:00→16:00)
[2024-08-27] MEDS ORDERED: fentaNYL 50 MCG/ML 1 ML SYRINGE/VIAL [PACU/SDC ONLY] IV PRN (12:00)
[2024-08-27] MEDS ORDERED: hydrALAZINE 20 MG/ML 1 ML VIAL IV PRN (12:00)
[2024-08-27] MEDS ORDERED: HYDROmorphone 1 MG/1 ML SYRINGE [PACU/SDC ONLY] IV PRN (12:00)
[2024-08-27] MEDS ORDERED: droPERidol 2.5 MG/ML 2 ML VIAL IV PRN (12:00)
--- NOTE | 2024-08-27 12:24 | NUR ---
D: Railroad Baggage Porter stopped by room on rounds. A: Pt was resting and content. Pt has no needs right now. P: Railroad Baggage Porter informed pt that if he needed anything from the electrical mechanic area to let his nurse know. Railroad Baggage Porter will follow up as needed
[2024-08-27] MEDS ORDERED: Vancomycin 1.5 GM,Special Dose/Pharmacy Prepared 1.5 GM in NS 250 ML IV SCH (12:30)
[2024-08-27] MEDS ORDERED: FLEXERIL 1010 MG/TAB PO (13:30)
[2024-08-27] MEDS ORDERED: PROTONIX20 MG PO (13:33)
[2024-08-27] MEDS ORDERED: CIALIS5 MG PO (13:34)
[2024-08-27] MEDS ORDERED: FLOMAX 0.40.4 MG/CAP PO (13:34)
[2024-08-27] MEDS ORDERED: ZOLOFT 50MG50 MG PO (13:35)
[2024-08-27] MEDS ORDERED: ASPIRIN 81M81 MG/TA2 PO (14:30)
[2024-08-27] MEDS ORDERED: fentaNYL 50 MCG/ML 2 ML VIAL ONE (14:51)
[2024-08-27] MEDS ORDERED: ePHEDrine 50 MG/ML VIAL ONE (15:10)
[2024-08-27] MEDS ORDERED: Phenylephrine 10 MG/ML VIAL ONE (15:22)
[2024-08-27] MEDS ORDERED: LR 1,000 ML IV ONE (15:55)
[2024-08-27] MEDS ORDERED: oxyCODONE 5 MG TAB PO PRN (16:00)
[2024-08-27] MEDS ORDERED: Naloxone 0.4 MG/ML VIAL IV PRN (16:00)
--- NOTE | 2024-08-27 16:43 | NUR ---
line assembly utility worker met with patient to discuss discharge planning. Patient stated he is currently living his sister, Katy, P# [phone]. Erika (daughter- next of kin) P# [phone] whom lives in [place]. PCP is Pennie Dunbar, Pharmacy is [facility]. Patient confirmed he has Medicare A and B. SW asked about a DPOA-HC, patient stated he did not have one and when social insurance specialist asked if patient wanted to complete one while in the hospital, patient started snoring. SW attempted to wake patient verbally. Patient continued to snore. SW will follow up. SW attended multidisciplinary meeting with Dr. Anne whom is going to put in PT and OT orders. Patient has an amputation today and would work with PT and OT afterwards. MARIBELL will follow up with the team regarding discharge plan. Discharge plan: Pending medical and PT and OT evaluations
--- NOTE | 2024-08-27 16:50 | NUR ---
PATIENT ARRIVED FROM PACU AFTER RT GREAT TOE AMPITATION. VSS. PATIENT STATES NO PAIN AT THIS TIME. DRESSING IN PLACE CDI W/ ORTHO SHOE IN PLACE. PATIENT HAS ORDERED DINNER AND STATES HE JUST WANTS TO EAT DINNER NO COMPLAINTS AT THIS TIME. CALL LIGHT IN REACH AND POST OP VITALS IN PROCESS
--- NOTE | 2024-08-27 20:47 | NUR ---
PT REFUSED CPAP.
[2024-08-28] VITALS (12 sets, daily range): BP systolic 103–121; BP diastolic 58–66; PULSE 71–80; TEMP 97.5–98.2
[2024-08-28 02:16] LABS: COLLECTION METHOD CLEAN CATCH
[2024-08-28 02:37] LABS: PH 5.5 (5.0-8.5); URINE APPEARANCE CLEAR (CLEAR/HAZY); URINE BLOOD NEGATIVE (NEGATIVE); URINE COLOR YELLOW (YELLOW); URINE GLUCOSE TRACE (NEGATIVE); URINE KETONE NEGATIVE (NEGATIVE); URINE NITRATE NEGATIVE (NEGATIVE); URINE PROTEIN(semi-quant) NEGATIVE (NEGATIVE); URINE UROBILINOGEN 0.2 E.U/dL (0.2-1.0)
[2024-08-28 06:46] LABS: BASO % 0.2 % (0.0-2.0); GRAN # 7.4 K/mm3 (1.4-6.5); GRAN % 85.2 % (42.2-75.2); HEMOGLOBIN 10.4 g/dl (13.5-18.0); LYMPH # 0.8 K/mm3 (1.2-3.4); LYMPH % 8.7 % (20.0-51.0); MEAN CELL VOLUME 89 fl (80.0-100.0); MEAN CORPUSCULAR HEMOGLOBIN 29 pg (27-31); MEAN CORPUSCULAR HGB CONC 32 g/dl (33.0-37.0); MEAN PLATELET VOLUME 9.3 fl (7.4-10.4); MONO # 0.5 K/mm3 (0.1-0.6); MONO % 5.4 % (1.7-9.3); PLATELET COUNT 275 K/mm3 (130-400); RED BLOOD COUNT 3.64 M/mm3 (4.20-5.60); REDCELL DISTRIBUTION WIDTH-CV 13.5 % (11.5-14.5)
[2024-08-28 06:48] LABS: HEMATOCRIT 32.4 % (42.0-52.0)
[2024-08-28 07:04] LABS: CALCIUM 8.5 mg/dL (8.4-10.2); CREATININE, serum 0.86 mg/dL (0.72-1.25); POTASSIUM 5.1 mEq/L (3.5-4.5)
--- NOTE | 2024-08-28 12:42 | NUR ---
SHIFT ASSESSMENT COMPLETE. PATIENT RESTING IN BED W/ SISTER AT BEDSIDE EATING BREAKFAST. ALL MORNING MEDS GIVEN ORDERED. PATIENT COMPLAINS OF PAIN 10/10 TO RT HEEL PAIN MEDS GIVEN OREDERED. PATIENT STATES NO OTHER REQUEST AT THIS TIME. BED ALARM ON AND CALL LIGHT IN REACH
--- NOTE | 2024-08-28 17:06 | NUR ---
skid road worker met with patient and his sister, Katy, to discuss discharge plan. Katy was in agreement that patient would benefit from SNF or Swing Bed to get some rehab. SW discussed patient getting a Medicaid application completed in case he were interested in AL after rehab and patient became upset and stated he would not be staying in the facility forever. Katy expressed patient takes about 2-3 hours to complete ADLS by himself and he is not properly caring for himself. Patient lives upstairs at their home and did not feel like he would be able to get up there immediately after discharge from the hospital. Katy was in agreement that a Medicaid application would be benefical. SW discussed the three options in [place] for SNF - [facility], [facility] and [facility]. Patient became irritated and stated he was not going to go to those places because they are "longterm." Patient's mother is in the memory unit at [facility], hospital social worker explained patient would be on the rehab side of the facility. SW explained they would see how patient does with PT and OT as patient would need to qualify. Patient and sister understood. SW met with PT and OT and explained patient's current situation at home. After they evaluated patient they were in agreement SNF would be appropriate for patient. SW and MARIBELL Guzman met with patient to discuss SNF and Swing Bed with patient. Patient was agreeable for a referral to [facility], [facility], [facility], [facility] and [facility]. SW secure emailed referrals to [facility], [facility], [facility]. MARIBELL faxed referral to [facility]. MARIBELL called [facility] for the referral and left a detailed message. MARIBELL attended multidisciplinary team meeting. Patient is in need of rehab. Everyone is in agreement with rehab placement. MARIBELL was notified [facility] is reviewing. MARIBELL was notified [facility] is sending the information to the team but reported it could be a good candidate for their rehab unit. MARIBELL will follow up tomorrow. Discharge plan: SNF or Swing Bed
--- NOTE | 2024-08-28 19:55 | NUR ---
CALL PLACED TO [facility]ISTS[facility]. PATIENT RESTLESS C/O OF NICOTINE NEED AND RESTLESS LEG-NO FORMAL Dx ON FILE. TORB FOR 21 MG NICOTINE TRANSDERMAL PATCH AND REQUIP WILL BE PLACED BY HOSPITALIST.
--- NOTE | 2024-08-28 20:30 | NUR ---
UPON SHIFT ASSESSMENT, PATIENT WAS IN BED AWAKE AND A&O X4. COLOR AND DISTAL PULSES TO AMPUTATION WNL. VS ARE STABLE. BLLE EXHIBIT SCALING AND DISCOLORATION D/T STASIS Hx PVD. PATIENT INSISTS ON AMBULATING UNASSISSTED TO RESTROOM-EDUCATION PROVIDED. MED PASS COMPLETE. C/O 06/16 BLLE PAIN-PRN CÉSAR GIVEN. CALL LIGHT WITHIN REACH.
[2024-08-28] MEDS ORDERED: Nicotine 21 MG DAILY PATCH TD ONE (20:45)
[2024-08-28] MEDS ORDERED: Famotidine 20 MG TAB PO SCH (21:00)
--- NOTE | 2024-08-28 23:43 | NUR ---
PATIENT REFUSING BED ALARM. EDUCATION PROVIDED, PATIENT INSISTS ON DEACTIVATION OF BED ALARM. PATIENT C/O OF IV DISCOMFORT REQUESTING REMOVAL, EDUCATION PROVIDED AND PATIENT AGREEABLE AND WILL ALLOW IV ACCESS TO REMAIN.
--- NOTE | 2024-08-28 23:45 | NUR ---
PATIENT HAD VISITOR COME AFTER HOURS TO "BRING HIM STUFF." VISITOR WAS OBSERVED GIVING PATIENT SNACKS.
[2024-08-29] VITALS (8 sets, daily range): BP systolic 101–135; BP diastolic 64–77; PULSE 74–83; TEMP 97.8–98.3
--- NOTE | 2024-08-29 04:24 | NUR ---
PRN ROXICODONE GIVEN FOR PAIN RATED 8/10 BLLE. DRESSINGS CDI. VS ARE WNL. PATIENT CONTINUES TO REFUSE BED ALARM AND ASSISSTANCE AMBULATING TO RESTROOM.
[2024-08-29 06:39] LABS: BASO % 0.3 % (0.0-2.0); EOS # 0.1 K/mm3 (0.0-0.7); EOS % 0.9 % (0.0-4.0); GRAN # 6.3 K/mm3 (1.4-6.5); GRAN % 68.1 % (42.2-75.2); HEMOGLOBIN 10.9 g/dl (13.5-18.0); LYMPH # 2.3 K/mm3 (1.2-3.4); LYMPH % 24.5 % (20.0-51.0); MEAN CELL VOLUME 89 fl (80.0-100.0); MEAN CORPUSCULAR HEMOGLOBIN 29 pg (27-31); MEAN CORPUSCULAR HGB CONC 32 g/dl (33.0-37.0); MEAN PLATELET VOLUME 8.6 fl (7.4-10.4); MONO # 0.5 K/mm3 (0.1-0.6); MONO % 5.8 % (1.7-9.3); PLATELET COUNT 284 K/mm3 (130-400); RED BLOOD COUNT 3.83 M/mm3 (4.20-5.60); REDCELL DISTRIBUTION WIDTH-CV 13.8 % (11.5-14.5)
[2024-08-29 06:42] LABS: HEMATOCRIT 34.2 % (42.0-52.0)
[2024-08-29 06:59] LABS: CALCIUM 8.8 mg/dL (8.4-10.2); CREATININE, serum 0.86 mg/dL (0.72-1.25); POTASSIUM 4.7 mEq/L (3.5-4.5)
--- NOTE | 2024-08-29 08:00 | NUR ---
Pt. sitting up in chair. Pt. is A&OX3, assessment complete INT to lt.forearm patent. INT to rt. ac discontinued per pt. request. Pt. denies further needs, call light within reach.
[2024-08-29] MEDS ORDERED: NICODERM C21 MG/PATC TD (12:26)
--- NOTE | 2024-08-29 15:00 | NUR ---
Pt. ready for discharge to [facility]. INT discontinued from lt. forearm. Pt. dressed. Packet given to the m48/m60 tank driver. Pt. escorted out.
--- NOTE | 2024-08-29 16:42 | NUR ---
take off worker attended interdisciplinary clinical rounding with Dr. Amor. Patient is medically ready for discharge once placement is secure. MARIBELL updated patient and his sister on the referrals. Patient stated his first preference would be [facility]. SW was notified [facility] is reviewing. MARIBELL spoke with Rohan at [facility] and they are able to accept patient today at 3 pm. MARIBELL notified patient's nurse, loading unit operator crimping, patient's sister and patient. Patient wanted to return home to get clothes before coming to the rehab facility. MARIBELL explained they would be unable to do this but confirmed with Rohan at [facility] that they could consider either tomorrow or Tuesday to take him home to get some items. SW asked if patient's sister could berry picker machine operator the clothing. Patient stated she does not know where his clothing is at. Patient began to get frustrated calling rehab a custodial. MARIBELL explained she can get some clothing from their supply closet for him to wear for the next couple days until they could get his clothing from home. Patient called his sister whom expressed she would not be able to get the clothing today but could possibly tomorrow. Patient became upset and stated it needed to be today. MARIBELL explained she would get the clothing and return. SW provided two sets of clothing for the next couple days so his sister has time to get the clothing he wants from his home. MARIBELL observed Jhonny with financial counseling assisting patient with Medicaid application. Apparently patient informed Jhonny that he has $60,000 in his savings, which would not qualify him for Medicaid. Jhonny explained patient would need to private pay at [place] or LTC if he chose to stay at one until his funds were depleted. MARIBELL attempted several times to complete IM with patient but he was on the toilet. MARIBELL Ontiveros was able to complete IM with patient prior to discharge. Discharge plan: [facility] - SNF
== END 2024-08-29 15:00 | DRG 854 ==
LOC: COL.ER 17:30 → SURG 19:06
PROVIDERS: Nurse Practitioner; Orthopaedic Surgery; Physician Assistant; ADMIT Internal Medicine
PROC: 0Y6P0Z0 Detachment at Right 1st Toe, Complete, Open Approach (ICD-10-PCS; principal; 2024-08-27 15:00)
DX: A41.9 Sepsis, unspecified organism (principal); I50.20 Unspecified systolic (congestive) heart failure; M86.171 Other acute osteomyelitis, right ankle and foot; I73.9 Peripheral vascular disease, unspecified; Z98.49 Cataract extraction status, unspecified eye; Z89.422 Acquired absence of other left toe(s); Z88.0 Allergy status to penicillin; F17.200 Nicotine dependence, unspecified, uncomplicated; I11.0 Hypertensive heart disease with heart failure; E78.5 Hyperlipidemia, unspecified; G47.33 Obstructive sleep apnea (adult) (pediatric); E87.5 Hyperkalemia
CPT/HCPCS: J0690; J0696; J1100; J1885; J2270; J2371; J2405; J2704; J2795; J3010; J3370; J7030; J7040; J7050; J7120